=== PATIENT | male | born 1955 | race Caucasian/White ===

== ENCOUNTER → 2021-02-18 07:01 | Outpatient (CLI) | payer OTHER, SELFPAY ==
[2021-02-18 08:24] LABS: Hematocrit 40.1 % (41-53); Hemoglobin 13.6 g/dL (13.5-17.5); Mean Corpuscular Hemoglobin 31.3 PG (26-34); Mean Corpuscular Volume 92.1 fL (80-100); Platelet Count 155 X10^3/uL (150-400); Red Blood Cell Count 4.35 X10^6/uL (4.5-5.9); Red Cell Distribution Width 12.7 % (11.6-14.8); White Blood Cell Count 5.6 X10^3/uL (4.5-11.0)
[2021-02-18 08:38] LABS: Alanine Aminotransferase 74 IU/L (<50); Albumin 4.6 g/dL (3.5-5.0); Alkaline Phosphatase 58 U/L (38-126); Aspartate Aminotransferase 41 IU/L (17-59); Bilirubin Total 0.5 mg/dL (0.2-1.3); Blood Urea Nitrogen 17 mg/dL (9-20); Carbon Dioxide 27 mmol/L (22-32); Chloride 106 mmol/L (98-107); Cholesterol 157 mg/dL (140-199); Estimated Glomerular Filt Rate > 60.0 mL/min (>60); Globulin 2.3 g/dL (1.7-4.1); Glucose 100 mg/dL (80-110); HDL Cholesterol 45 mg/dL (40-60); HEMOLYSIS < 15 (0-50); LDL Cholesterol Calculated 81 mg/dL (<100); Potassium 4.2 mmol/L (3.4-5.1); Sodium 140 mmol/L (137-145); Total Protein 6.9 g/dL (6.3-8.2); Triglycerides 156 mg/dL (35-150)
[2021-02-18 09:04] LABS: TSH w/ Reflex to FT4 2.46 uIU/mL (0.47-4.68)
== END ==
PROVIDERS: PCP Registered Nurse Diabetes Educator; Referring Provider Registered Nurse Diabetes Educator; Visit Provider Registered Nurse Diabetes Educator
DX: E78.5 Hyperlipidemia, unspecified (principal); I10 Essential (primary) hypertension
CPT/HCPCS: 36415; 80053; 80061; 84443; 85027

== ENCOUNTER → 2022-09-25 07:56 | Outpatient (CLI) | payer MEDICARE, OTHER, SELFPAY ==
[2022-09-25 09:01] LABS: Add Manual Diff / Slide Review NO; Basophils Absolute Auto 100 /uL (0-100); Basophils Percent Auto 1.2 % (0-2); Eosinophils Absolute Auto 200 /uL (0-450); Eosinophils Percent Auto 3.4 % (2-4); Hemoglobin 13.6 g/dL (13.5-17.5); Lymphocytes Absolute Auto 1700 /uL (1100-4500); Lymphocytes Percent Auto 28.5 % (25-40); Mean Corpuscular HGB Conc 34.8 % (30-36); Mean Corpuscular Hemoglobin 30.8 PG (26-34); Mean Corpuscular Volume 88.5 fL (80-100); Monocytes Absolute Auto 400 /uL (0-900); Monocytes Percent Auto 6.1 % (3-14); Neutrophils Absolute Auto 3600 /uL (1500-7000); Neutrophils Percent Auto 60.8 % (50-75); Platelet Count 172 X10^3/uL (150-400); Red Blood Cell Count 4.41 X10^6/uL (4.5-5.9); Red Cell Distribution Width 13.1 % (11.6-14.8); White Blood Cell Count 5.9 X10^3/uL (4.5-11.0)
[2022-09-25 09:39] LABS: Alanine Aminotransferase 46 IU/L (<50); Albumin 4.1 g/dL (3.5-5.0); Albumin Globulin Ratio 1.5 (1.0-2.8); Alkaline Phosphatase 88 U/L (38-126); Aspartate Aminotransferase 26 IU/L (17-59); BUN Creatinine Ratio 15.9 (6-22); Bilirubin Total 0.5 mg/dL (0.2-1.3); Blood Urea Nitrogen 14 mg/dL (9-20); Calcium 8.8 mg/dL (8.4-10.2); Carbon Dioxide 29 mmol/L (22-32); Chloride 104 mmol/L (98-107); Cholesterol 231 mg/dL (140-199); Estimated Glomerular Filt Rate > 60 mL/min (>60); Globulin 2.8 g/dL (1.7-4.1); Glucose 97 mg/dL (80-110); HDL Cholesterol 36 mg/dL (40-60); HEMOLYSIS < 15 (0-50); LDL Cholesterol Calculated 134 mg/dL (<100); Potassium 4.4 mmol/L (3.4-5.1); Sodium 140 mmol/L (137-145); Total Protein 6.9 g/dL (6.3-8.2); Triglycerides 303 mg/dL (35-150)
== END ==
PROVIDERS: PCP Registered Nurse Diabetes Educator; Referring Provider Registered Nurse Diabetes Educator; Visit Provider Registered Nurse Diabetes Educator
DX: I10 Essential (primary) hypertension (principal); E78.5 Hyperlipidemia, unspecified; Z51.81 Encounter for therapeutic drug level monitoring
CPT/HCPCS: 36415; 80053; 80061; 85025

== ENCOUNTER → 2022-10-18 09:54 | Outpatient (CLI) | payer MEDICARE, SELFPAY ==
--- NOTE | 2022-10-18 09:56 | DI.RAD.S_ITS ---
PROCEDURE: XR LUMBAR SPINE MIN 4V INDICATIONS: LOW BACK PAIN TECHNIQUE: 5 views of the lumbar spine were acquired, including bilateral oblique views. COMPARISON: None. FINDINGS: Bones: Five nonrib-bearing vertebrae are present. Grade 1 anterolisthesis, 5 mm at L4-5 and moderate facet sclerosis and hypertrophy. Grade 1 anterolisthesis of 10 mm at L5-S1 with severe facet hypertrophy and sclerosis. No vertebral body compression fractures. Moderate disc height loss L4-5 and moderately severe disc height loss L5-S1. No suspicious bony lesions. Soft tissues: Overlying bowel gas pattern is normal. No suspicious soft tissue calcifications. Oblique images: No visible pars defects. IMPRESSION: 1. Moderately severe facet arthropathy L4-5 and L5-S1 resulting in grade 1 anterolisthesis as described. 2. Pars defects were not well visualized, but non tightly excluded. Dictated by: Daya Correia M.D. on 10/18/2022 at 12:40 Approved by: Daya Correia M.D. on 10/18/2022 at 12:42
== END ==
PROVIDERS: PCP Registered Nurse Diabetes Educator; Referring Provider Anesthesiology; Visit Provider Anesthesiology
DX: M47.816 Spondylosis without myelopathy or radiculopathy, lumbar region (principal); M47.817 Spondylosis without myelopathy or radiculopathy, lumbosacral region; M54.59 Other low back pain; M43.16 Spondylolisthesis, lumbar region; M43.17 Spondylolisthesis, lumbosacral region; G89.29 Other chronic pain
CPT/HCPCS: 72110; 99214

== ENCOUNTER → 2023-01-17 06:54 | Outpatient (CLI) | payer MEDICARE, SELFPAY ==
[2023-01-17 08:50] LABS: BUN Creatinine Ratio 24.1 (6-22); Blood Urea Nitrogen 21 mg/dL (9-20); Calcium 8.8 mg/dL (8.4-10.2); Carbon Dioxide 27 mmol/L (22-32); Chloride 104 mmol/L (98-107); Cholesterol 130 mg/dL (140-199); Estimated Glomerular Filt Rate > 60 mL/min (>60); Glucose 94 mg/dL (80-110); HDL Cholesterol 39 mg/dL (40-60); HEMOLYSIS < 15 (0-50); LDL Cholesterol Calculated 48 mg/dL (<100); Potassium 4.3 mmol/L (3.4-5.1); Sodium 139 mmol/L (137-145); Triglycerides 213 mg/dL (35-150)
== END ==
PROVIDERS: PCP Registered Nurse Diabetes Educator; Referring Provider Registered Nurse Diabetes Educator; Visit Provider Registered Nurse Diabetes Educator
DX: I10 Essential (primary) hypertension (principal); E78.5 Hyperlipidemia, unspecified
CPT/HCPCS: 36415; 80048; 80061

== ENCOUNTER → 2024-04-15 07:44 | Outpatient (CLI) | payer MEDICARE, SELFPAY ==
[2024-04-15 08:11] LABS: Hematocrit 39.7 % (41-53); Hemoglobin 13.8 g/dL (13.5-17.5); Mean Corpuscular HGB Conc 34.8 % (30-36); Mean Corpuscular Volume 89.1 fL (80-100); Platelet Count 143 X10^3/uL (150-400); Red Blood Cell Count 4.46 X10^6/uL (4.5-5.9); Red Cell Distribution Width 13.4 % (11.6-14.8); White Blood Cell Count 5.3 X10^3/uL (4.5-11.0)
[2024-04-15 08:31] LABS: HEMOLYSIS < 15 (0-50); Iron 92 ug/dL (49-181)
[2024-04-15 08:36] LABS: Alanine Aminotransferase 32 IU/L (<50); Albumin 4.4 g/dL (3.5-5.0); Alkaline Phosphatase 68 U/L (38-126); Aspartate Aminotransferase 26 IU/L (17-59); BUN Creatinine Ratio 14.6 (6-22); Bilirubin Total 0.6 mg/dL (0.2-1.3); Blood Urea Nitrogen 13 mg/dL (9-20); Carbon Dioxide 27 mmol/L (22-32); Chloride 108 mmol/L (98-107); Cholesterol 124 mg/dL (140-199); Estimated Glomerular Filt Rate > 60 mL/min (>60); Globulin 2.2 g/dL (1.7-4.1); Glucose 96 mg/dL (80-110); HDL Cholesterol 37 mg/dL (40-60); HEMOLYSIS < 15 (0-50); LDL Cholesterol Calculated 49 mg/dL (<100); Potassium 4.4 mmol/L (3.4-5.1); Sodium 141 mmol/L (137-145); Total Protein 6.6 g/dL (6.3-8.2); Triglycerides 192 mg/dL (35-150)
[2024-04-15 08:43] LABS: Percent Iron Saturation 25 % (20-50); Total Iron Binding Capacity 362 ug/dL (261-462); Transferrin 287 mg/dL (206-381)
[2024-04-15 09:06] LABS: TSH w/ Reflex to FT4 2.06 uIU/mL (0.47-4.68)
[2024-04-15 09:13] LABS: Ferritin 104 ng/mL (18-464); Testosterone 236 ng/dL (71.8-623)
[2024-04-15 09:43] LABS: Folate 5.5 ng/mL (2.76-20.0); Vitamin B12 372 pg/mL (239-931)
[2024-04-18 14:09] LABS: Lamotrigine Lamictal 5.3 ug/mL (2.0-20.0)
== END ==
PROVIDERS: PCP Registered Nurse Diabetes Educator; Referring Provider Registered Nurse Diabetes Educator; Visit Provider Registered Nurse Diabetes Educator
DX: I10 Essential (primary) hypertension (principal); D64.9 Anemia, unspecified; E78.5 Hyperlipidemia, unspecified; N52.9 Male erectile dysfunction, unspecified; Z51.81 Encounter for therapeutic drug level monitoring; F31.9 Bipolar disorder, unspecified
CPT/HCPCS: 36415; 80053; 80061; 80175; 82607; 82728; 82746; 83540; 83550; 84403; 84443; 85027

== ENCOUNTER → 2024-10-20 07:17 | Outpatient (CLI) | payer MEDICARE, SELFPAY ==
[2024-10-20 08:14] LABS: Hematocrit 41.1 % (41-53); Hemoglobin 14.1 g/dL (13.5-17.5); Mean Corpuscular HGB Conc 34.2 % (30-36); Mean Corpuscular Hemoglobin 30.8 PG (26-34); Mean Corpuscular Volume 89.9 fL (80-100); Platelet Count 159 X10^3/uL (150-400); Red Blood Cell Count 4.58 X10^6/uL (4.5-5.9); Red Cell Distribution Width 13.8 % (11.6-14.8)
[2024-10-20 09:07] LABS: Alanine Aminotransferase 35 IU/L (<50); Albumin 4.8 g/dL (3.5-5.0); Albumin Globulin Ratio 2.3 (1.0-2.8); Alkaline Phosphatase 68 U/L (38-126); Aspartate Aminotransferase 27 IU/L (17-59); BUN Creatinine Ratio 21.2 (6-22); Bilirubin Total 0.9 mg/dL (0.2-1.3); Blood Urea Nitrogen 22 mg/dL (9-20); Calcium 9.5 mg/dL (8.4-10.2); Carbon Dioxide 24 mmol/L (22-32); Chloride 106 mmol/L (98-107); Cholesterol 145 mg/dL (140-199); Estimated Glomerular Filt Rate > 60 mL/min (>60); Globulin 2.1 g/dL (1.7-4.1); Glucose 101 mg/dL (70-99); HDL Cholesterol 36 mg/dL (40-60); HEMOLYSIS < 15 (0-50); LDL Cholesterol Calculated 64 mg/dL (<100); Potassium 4.3 mmol/L (3.4-5.1); Sodium 140 mmol/L (137-145); Total Protein 6.9 g/dL (6.3-8.2); Triglycerides 224 mg/dL (35-150)
[2024-10-20 09:24] LABS: Vitamin D 25 Hydroxy (D3) 63.3 ng/mL (30.0-100.0)
[2024-10-20 09:40] LABS: Testosterone 345 ng/dL (71.8-623)
[2024-10-20 09:57] LABS: Vitamin B12 924 pg/mL (239-931)
[2024-10-21 10:36] LABS: Rubeola Measles IgG > 300.0 AU/mL (Immune >16.4)
== END ==
PROVIDERS: PCP Registered Nurse Diabetes Educator; Referring Provider Registered Nurse Diabetes Educator; Visit Provider Registered Nurse Diabetes Educator
DX: E78.5 Hyperlipidemia, unspecified (principal); I10 Essential (primary) hypertension; D64.9 Anemia, unspecified; R53.83 Other fatigue; N52.01 Erectile dysfunction due to arterial insufficiency; Z86.19 Personal history of other infectious and parasitic diseases
CPT/HCPCS: 36415; 80053; 80061; 82306; 82607; 84403; 85027; 86735; 86762; 86765

== ENCOUNTER 2024-11-24 07:23 | Day surgery (SDC) | payer MEDICARE, SELFPAY ==
[2024-11-24 07:46] VITALS: BP 134/87; PULSE 65; RESP 16; TEMP 36.3; O2SAT 97
[2024-11-24] MEDS: LACTATED RINGERS 1,000 ML 84 ML IV (08:03)
--- NOTE | 2024-11-24 08:16 | PM.HP.IH.1 ---
History of Present Illness History of Present Illness Date Patient Seen: 11/24/24 Chief complaint: SDC Narrative: Follow-up 10 year screening colonoscopy [facility] Medical History (Updated 10/30/24 @ 15:13 by AUDREY Krishnan) Impaired fasting blood sugar Lumbar spondylosis Osteoarthritis of carpometacarpal (CMC) joint of both thumbs Discogenic lumbar pain Chronic low back pain without sciatica Osteoarthritis of hands, bilateral Wears glasses Arthritis Measles (~1960) Chicken pox (~1958) History of alcohol abuse Left ear hearing loss (~1955) Allergic rhinitis Bipolar 2 disorder Osteoarthritis (~2017) Chronic GERD Essential hypertension Dyslipidemia Surgical History Anesthesia History of knee surgery (~2016) Family History Mother Diabetes mellitus Hypertension Hyperlipidemia Mental health problem Stroke Breast cancer Brother Mental health problem Hyperlipidemia Grandfather Congestive heart failure Diabetes mellitus History of heart disease Hyperlipidemia Hypertension Mental health problem Grandfather Cancer Grandmother Pneumonia Social History Smoking Status: Former smoker alcohol intake: never Meds Home Medications and Allergies Home Medications ?Medication ?Instructions ?Recorded ?Confirmed ?Type cannabidiol 100 mg/mL oral solution 100 mg PO .prn 02/17/21 11/24/24 History fexofenadine 180 mg tablet 180 mg PO DAILY 02/17/21 11/24/24 History omega-3 fatty acids 1,000 mg 1,000 mg PO DAILY 02/17/21 11/24/24 History capsule (Fish Oil Concentrate) omeprazole 20 mg capsule,delayed 20 mg PO DAILY #90 caps 05/21/24 11/24/24 Rx release sodium,potassium,mag sulfates 17.5 See Rx Instructions PO .COMPLEX 10/16/24 11/24/24 Rx gram-3.13 gram-1.6 gram oral soln #354 mL (Suprep Bowel Prep Kit) celecoxib 100 mg capsule (Celebrex) 100 mg PO BID #60 caps 10/27/24 11/24/24 Rx lamotrigine 200 mg tablet,extended 200 mg PO DAILY #90 tabs 10/27/24 11/24/24 Rx release 24 hr lisinopril 40 mg tablet 40 mg PO DAILY #90 tabs 10/27/24 11/24/24 Rx rosuvastatin 40 mg tablet 40 mg PO DAILY #90 tabs 10/27/24 11/24/24 Rx sildenafil 50 mg tablet (Viagra) 50 mg PO DAILY PRN sexual activity 10/27/24 11/24/24 Rx #30 tabs trazodone 50 mg tablet 50 mg PO BEDTIME PRN insomnia #90 10/27/24 11/24/24 Rx tabs Allergies Allergy/AdvReac Type Severity Reaction Status Date / Time grass pollen Allergy Mild Verified 11/24/24 07:39 Exam Vital Signs (past 8 hours): - 11/24/24 07:46 Temperature 97.3 F L Pulse Rate 65 Respiratory Rate 16 Blood Pressure 134/87 Pulse Oximetry 97 Oxygen Delivery Method Room Air Oxygen Delivery Method Room Air Narrative Exam Narrative: Oropharynx free of lesions Chest clear to auscultation percussion Cardiac exam reveals no S3 or murmur Assessment & Plan Assessment & Plan narrative: Follow-up 10 year screening colonoscopy. Risks, benefits, alternatives have been explained. Time-Based Coding :: [TOTAL MINUTES] spent with patient and on the chart (including review of chart, obtaining history, exam, reviewing outside data, placing orders, documenting exam and treatment plan, and counseling patient) on [DATE]. 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
--- NOTE | 2024-11-24 08:18 | PM.OP.COLON ---
Operative Date/Time/Diagnoses Date of procedure: 11/24/24 Time of procedure: 08:36 Pre-op diagnosis: See indication and findings Post-op diagnosis: same Procedure & Clinicians Study performed: Colonoscopy Same procedure as scheduled: Yes Indications: Screening Surgeon: Michelle Stone Procedure Notes Procedure in detail: After informed consent was obtained the patient placed in left lateral decubitus position. The video colonoscope was introduced the rectum slowly advanced cecum. Preparation was good. On slow withdrawal mucosa was carefully examined. The scope was removed. The patient tolerated procedure well. Blood loss none Complications none Sedation mac Findings 1. Normal colonoscopy to cecum Patient should have follow-up colonoscopy in 10 years
[2024-11-24 08:39] VITALS: BP 110/77; PULSE 66; RESP 19; TEMP 36.2; O2SAT 90
[2024-11-24 08:44] VITALS: BP 109/80; PULSE 60; RESP 17; O2SAT 94
[2024-11-24 08:49] VITALS: BP 111/83; PULSE 58; RESP 18; O2SAT 95
[2024-11-24 08:54] VITALS: BP 135/87; PULSE 65; RESP 16; TEMP 36.2; O2SAT 99
[2024-11-24 09:01] VITALS: BP 137/92; PULSE 63; RESP 16; O2SAT 98
== END 2024-11-24 09:19 | disposition home or self-care (01) ==
PROVIDERS: PCP Registered Nurse Diabetes Educator; Referring Provider Internal Medicine Gastroenterology; Visit Provider Internal Medicine Gastroenterology
PROC: 0DJD8ZZ Inspection of Lower Intestinal Tract, Via Natural or Artificial Opening Endoscopic (ICD-10-PCS; CPT 45378; principal; 2024-11-24 08:30)
DX: Z12.11 Encounter for screening for malignant neoplasm of colon (principal); I10 Essential (primary) hypertension; E78.5 Hyperlipidemia, unspecified; K21.9 Gastro-esophageal reflux disease without esophagitis; Z87.891 Personal history of nicotine dependence; F31.81 Bipolar II disorder
CPT/HCPCS: G0121; J2704